=== PATIENT | male | born 1965 | race Caucasian/White ===

== ENCOUNTER 2019-01-10 12:41 | Emergency (ER) | payer MEDICAID ==
[~2019-01-10] VITALS: Ht 175.3 cm; Wt 77.1 kg
--- NOTE | 2019-01-10 13:20 | NUR ---
PATIENT WAS MSE BY DR PEREZ IN ROOM 04B.
--- NOTE | 2019-01-10 13:28 | NUR ---
Patient discharged to home in stable conditon. Written and verbal after care instructions given. Patient verbalizes understanding of instructions.
[2019-01-10 13:31] VITALS: BP 125/74
== END 2019-01-10 13:34 | disposition home or self-care (01) ==
LOC: ER 12:41
DX: K04.7 Periapical abscess without sinus (principal); F32.9 Major depressive disorder, single episode, unspecified
CPT/HCPCS: A4663

== ENCOUNTER 2022-11-20 16:25 | Emergency (ER) | payer MEDICAID ==
[~2022-11-20] VITALS: Ht 175.3 cm; Wt 86.2 kg
--- NOTE | 2022-11-20 16:32 | NUR ---
Patient ambulated to room #4, denies any pain or discomfort to his throat area, informed of plan of care, awaiting MD exam. No s/s of any distress noted at this time, will continue to monitor.
--- NOTE | 2022-11-20 16:38 | NUR ---
at bedside for exam.
--- NOTE | 2022-11-20 16:48 | NUR ---
ACI given, remains stable for discharge home.
[2022-11-20 16:53] VITALS: BP 138/88
== END 2022-11-20 16:54 | disposition home or self-care (01) ==
LOC: ER 16:28
DX: R22.1 Localized swelling, mass and lump, neck (principal)
CPT/HCPCS: A4663